=== PATIENT | male | born 1955 | race Two or more races ===

== ENCOUNTER 2024-03-24 00:57 | Inpatient (IN) | payer OTHER ==
[~2024-03-24] VITALS: Ht 198.1 cm; Wt 90.7 kg
[2024-03-24] MEDS ORDERED: LABETALOL HCL IV 100MG VIAL ONE (01:46)
[2024-03-24 01:51] LABS: BASOPHILS # (AUTO) 0.1 K/uL (0.0-0.2); BASOPHILS % (AUTO) 0.5 % (0.0-2.0); EOSINOPHILS # (AUTO) 0.1 K/uL (0.0-0.7); EOSINOPHILS % (AUTO) 0.8 % (0.0-6.0); HEMATOCRIT 44 % (39-51); HEMOGLOBIN 15.2 g/dL (13.5-17.5); LYMPHOCYTES # (AUTO) 1.4 K/uL (0.8-4.8); LYMPHOCYTES % (AUTO) 12.7 % (20.0-44.0); MEAN CORPUSCULAR HEMOGLOBIN 33 PG (26.0-33.0); MEAN CORPUSCULAR HGB CONC 35 g/dl (31.0-36.0); MEAN CORPUSCULAR VOLUME 95 fL (80-96); MONOCYTES % (AUTO) 9.4 % (2.0-12.0); NEUTROPHILS # (AUTO) 8.5 K/uL (1.8-8.9); NEUTROPHILS % (AUTO) 76.6 % (43.0-81.0); PLATELET COUNT (AUTO) 255 K/uL (150-450); RED BLOOD CELL COUNT(AUTO) 4.64 MIL/uL (4.5-6.0); WHITE BLOOD COUNT (AUTO) 11.1 K/uL (4.3-11.0)
[2024-03-24] MEDS: LABETALOL HCL IV 100MG VIAL IV ONE ×2 (01:59→03:08)
[2024-03-24 02:07] LABS: INR 1.05 (0.91-1.10); PARTIAL THROMBOPLASTIN TIME 27.4 SEC (24.3-34.3); PROTHROMBIN TIME 11.1 SECS (9.2-11.1)
[2024-03-24 02:21] LABS: SERUM AMMONIA 8 umol/L (11-32)
[2024-03-24 02:23] LABS: CALCIUM, SERUM 8.9 mg/dL (8.5-10.1); CARBON DIOXIDE 29 mmol/L (21-32); CHLORIDE 99 mmol/L (98-107); CREATININE 1.1 mg/dL (0.6-1.3); GLUCOSE 117 mg/dL (74-106); POTASSIUM 3.4 mmol/L (3.5-5.1); SODIUM SERUM 135 mmol/L (136-145); UREA NITROGEN, BLOOD 15 mg/dL (7-18)
[2024-03-24 02:32] LABS: ALANINE AMINOTRANSFERASE 16 U/L (12-78); ALBUMIN 3.2 g/dL (3.4-5.0); ALKALINE PHOSPHATASE 108 U/L (46-116); ASPARTATE AMINOTRANSFERASE 24 U/L (15-37); BILIRUBIN,DIRECT 0.2 mg/dL (0.0-0.2); SALICYLATE 3.5 mg/dL (2.8-20.0); TOTAL PROTEIN, SERUM 6.7 g/dL (6.4-8.2)
[2024-03-24 02:33] LABS: ACETAMINOPHEN <10 ug/ml (10-30); ALCOHOL, BLOOD < 3 mg/dL (0-10); THYROID STIMULATING HORMONE 2.872 uIU/mL (0.358-3.74)
[2024-03-24 02:44] LABS: APPEARANCE,URINE CLEAR (CLEAR); BILIRUBIN,URINE NEGATIVE (NEGATIVE); BLOOD, URINE 2+ Ery/uL (NEGATIVE); COLOR,URINE YELLOW (YELLOW); KETONES,URINE NEGATIVE (NEGATIVE); LEUKOCYTE ESTERASE ,URINE NEGATIVE (NEGATIVE); NITRITE, URINE NEGATIVE (NEGATIVE); PROTEIN,URINE NEGATIVE (NEGATIVE); UGLUCOSE NEGATIVE (NEGATIVE)
[2024-03-24 02:58] LABS: ADD URINE CULTURE NO; BACTERIA,URINE Few /HPF (None Seen); RBC,URINE 21-50 /HPF (0-2); SQUAMOUS EPITHELIAL CELL,UR None Seen /HPF (None Seen); WBC,URINE 0-2 /HPF (0-3)
[2024-03-24 02:59] LABS: AMPHETAMINE, URINE NEGATIVE (NEGATIVE); BARBITURATE, URINE NEGATIVE (NEGATIVE); BENZODIAZEPINE, URINE NEGATIVE (NEGATIVE); COCCAINE, URINE NEGATIVE (NEGATIVE); OPIATE, URINE NEGATIVE (NEGATIVE); PHENCYCLIDINE SCREEN,URINE NEGATIVE (NEGATIVE)
[2024-03-24 03:00] LABS: CANNABINOID, URINE POSITIVE (NEGATIVE)
[2024-03-24] MEDS ORDERED: MAG HYDROX/AL HYDROX/SIMETH 30 ML UDC PO PRN (06:00)
[2024-03-24] MEDS ORDERED: ACETAMINOPHEN 325 MG TABLET PO PRN (06:00)
[2024-03-24] MEDS ORDERED: ONDANSETRON HCL/PF 4 MG/2 ML VIAL IVP PRN (06:00)
[2024-03-24] MEDS: POTASSIUM CHLORIDE 20 MEQ TAB.PRT.SR PO ONE ×2 (06:22→19:13)
[2024-03-24 06:30] VITALS: BP 171/101
[2024-03-24] MEDS: BLOOD SUGAR DIAGNOSTIC 1 EACH STRIP IN SCH (06:35)
[2024-03-24 07:00] VITALS: BP 143/88; TEMP 97.6; O2SAT 99
[2024-03-24 07:14] LABS: BASOPHILS % (AUTO) 0.3 % (0.0-2.0); EOSINOPHILS # (AUTO) 0.1 K/uL (0.0-0.7); EOSINOPHILS % (AUTO) 1.2 % (0.0-6.0); HEMATOCRIT 41 % (39-51); HEMOGLOBIN 14.4 g/dL (13.5-17.5); LYMPHOCYTES # (AUTO) 1.2 K/uL (0.8-4.8); LYMPHOCYTES % (AUTO) 14.3 % (20.0-44.0); MEAN CORPUSCULAR HEMOGLOBIN 33 PG (26.0-33.0); MEAN CORPUSCULAR HGB CONC 35 g/dl (31.0-36.0); MEAN CORPUSCULAR VOLUME 93 fL (80-96); MONOCYTES # (AUTO) 0.9 K/uL (0.1-1.30); MONOCYTES % (AUTO) 10.4 % (2.0-12.0); NEUTROPHILS # (AUTO) 6.1 K/uL (1.8-8.9); NEUTROPHILS % (AUTO) 73.8 % (43.0-81.0); PLATELET COUNT (AUTO) 236 K/uL (150-450); RED BLOOD CELL COUNT(AUTO) 4.39 MIL/uL (4.5-6.0); RED CELL DISTRIBUTION WIDTH 13.2 % (11.5-15.0); WHITE BLOOD COUNT (AUTO) 8.2 K/uL (4.3-11.0)
[2024-03-24 07:41] LABS: CALCIUM, SERUM 8.8 mg/dL (8.5-10.1); TOTAL PROTEIN, SERUM 6.2 g/dL (6.4-8.2)
[2024-03-24 07:51] LABS: THYROID STIMULATING HORMONE 1.463 uIU/mL (0.358-3.74)
[2024-03-24] MEDS ORDERED: TAMS-12 PO (08:10)
[2024-03-24] MEDS ORDERED: ASPI-1169 PO (08:10)
[2024-03-24] MEDS ORDERED: METO-358 PO (08:10)
[2024-03-24] MEDS ORDERED: VENL150C58 PO (08:10)
[2024-03-24 08:16] LABS: ERYTHROCYTE SEDIMENTATION RATE 3 MM/HR (0-20)
[2024-03-24 08:18] LABS: POTASSIUM 2.9 mmol/L (3.5-5.1)
[2024-03-24] MEDS: NEOMY SULF/BACITRAC ZN/POLY 15 GM TUBE TP SCH (09:00)
[2024-03-24] MEDS: ENOXAPARIN SODIUM 40 MG/0.4 ML DISP.SYRIN SQ SCH (09:44)
[2024-03-24] MEDS: ASPIRIN 81 MG TAB.CHEW PO SCH (09:45)
[2024-03-24] MEDS ORDERED: IOHEXOL-350 100 ML VIAL IV ONE (15:41)
[2024-03-24] MEDS ORDERED: IV NS 0.9% 250 ML IV ONE (15:42)
[2024-03-24] MEDS ORDERED: CT SWABBABLE VALVE TRANS SET 1 EA INFUS.SET MC ONE (15:42)
[2024-03-24 16:00] VITALS: BP 142/90; TEMP 98.2; O2SAT 98
[2024-03-24] MEDS ORDERED: POTASSIUM CHLORIDE 20 MEQ TAB.PRT.SR PO SCH (19:00)
[2024-03-24 20:00] VITALS: BP 174/101; TEMP 97.5; O2SAT 97
[2024-03-24] MEDS: ATORVASTATIN 40 MG TABLET PO SCH (22:29)
[2024-03-25] VITALS (8 sets, daily range): BP systolic 156–183; BP diastolic 90–111; TEMP 97.3–98.3; O2SAT 96–98
[2024-03-25 06:51] LABS: BASOPHILS % (AUTO) 0.5 % (0.0-2.0); EOSINOPHILS # (AUTO) 0.1 K/uL (0.0-0.7); EOSINOPHILS % (AUTO) 1.6 % (0.0-6.0); HEMATOCRIT 41 % (39-51); HEMOGLOBIN 14.4 g/dL (13.5-17.5); LYMPHOCYTES # (AUTO) 1.2 K/uL (0.8-4.8); LYMPHOCYTES % (AUTO) 15.8 % (20.0-44.0); MEAN CORPUSCULAR HEMOGLOBIN 33 PG (26.0-33.0); MEAN CORPUSCULAR HGB CONC 35 g/dl (31.0-36.0); MEAN CORPUSCULAR VOLUME 94 fL (80-96); MONOCYTES # (AUTO) 0.7 K/uL (0.1-1.30); MONOCYTES % (AUTO) 9.5 % (2.0-12.0); NEUTROPHILS # (AUTO) 5.4 K/uL (1.8-8.9); NEUTROPHILS % (AUTO) 72.6 % (43.0-81.0); PLATELET COUNT (AUTO) 201 K/uL (150-450); RED BLOOD CELL COUNT(AUTO) 4.37 MIL/uL (4.5-6.0); RED CELL DISTRIBUTION WIDTH 13.3 % (11.5-15.0); WHITE BLOOD COUNT (AUTO) 7.5 K/uL (4.3-11.0)
[2024-03-25 07:22] LABS: CALCIUM, SERUM 8.7 mg/dL (8.5-10.1); POTASSIUM 3.5 mmol/L (3.5-5.1)
[2024-03-25] MEDS: VENLAFAXINE XR 150 MG CAP.SR.24H PO SCH (08:44)
[2024-03-25] MEDS: METOPROLOL SUCCINATE 50 MG TAB.SR.24H PO SCH (08:45)
[2024-03-25] MEDS: MUPIROCIN OINT 2% 22 GM TUBE TP SCH (08:46)
[2024-03-25] MEDS: AMLODIPINE BESYLATE 5 MG TABLET PO SCH (12:16)
[2024-03-25] MEDS: hydrALAZINE HCL 25 MG TABLET PO PRN (14:31)
[2024-03-25] MEDS: CYANOCOBALAMIN 1,000 MCG/ML VIAL IM SCH (15:38)
[2024-03-25] MEDS: AMLODIPINE BESYLATE 5 MG TABLET PO ONE (16:35)
[2024-03-26 08:00] VITALS: BP 175/112; TEMP 97.7; O2SAT 99
[2024-03-26] MEDS: TAMSULOSIN 0.4 MG CAP.SR.24H PO SCH (08:28)
[2024-03-26] MEDS: AMLODIPINE BESYLATE 10 MG TABLET PO SCH (08:28)
[2024-03-26] MEDS ORDERED: ASPIRIN 81 MG TAB.CHEW PO SCH (09:00)
[2024-03-26] MEDS ORDERED: VENLAFAXINE XR 150 MG CAP.SR.24H PO SCH (09:00)
[2024-03-26] MEDS: LOSARTAN POTASSIUM 25 MG TABLET PO SCH (09:59)
[2024-03-26 11:23] VITALS: BP 167/96
[2024-03-26] MEDS ORDERED: ATOR40TA PO (13:03)
[2024-03-26] MEDS ORDERED: CYAN100096 PO (13:03)
[2024-03-26] MEDS ORDERED: AMLO-213 PO (13:03)
[2024-03-26] MEDS ORDERED: LOSA25TA27 PO (13:03)
[2024-03-29 13:11] LABS: METHYLMALONIC ACID 316 nmol/L (0-378)
== END 2024-03-26 13:28 | disposition home or self-care (01) | DRG 304 ==
LOC: ER 00:59 → TELE 03:11 → MED 03-25 12:25
PROVIDERS: ADMIT Student in an Organized Health Care Education/Training Program; ATTEND Student in an Organized Health Care Education/Training Program
DX: I16.0 Hypertensive urgency (principal); G92.9 Unspecified toxic encephalopathy; E44.0 Moderate protein-calorie malnutrition; E87.1 Hypo-osmolality and hyponatremia; F33.2 Major depressive disorder, recurrent severe without psychotic features; I48.91 Unspecified atrial fibrillation; I10 Essential (primary) hypertension; Z86.73 Personal history of transient ischemic attack (TIA), and cerebral infarction without residual deficits; E87.6 Hypokalemia; Z79.82 Long term (current) use of aspirin; Z95.0 Presence of cardiac pacemaker; V89.2XXA Person injured in unspecified motor-vehicle accident, traffic, initial encounter; Y04.0XXA Assault by unarmed brawl or fight, initial encounter; Y92.410 Unspecified street and highway as the place of occurrence of the external cause; S81.802A Unspecified open wound, left lower leg, initial encounter; S81.801A Unspecified open wound, right lower leg, initial encounter; X58.XXXA Exposure to other specified factors, initial encounter; R60.9 Edema, unspecified; Z68.23 Body mass index [BMI] 23.0-23.9, adult
CPT/HCPCS: 36415; 70450-TC; 70496-TC; 70498-TC; 71045-TC; 72125-TC; 80048-TC; 80053-TC; 80061-TC; 80076-TC; 81001; 82140-TC; 82607-TC; 82962-TC; 83921; 84425; 84443-TC; 84484-TC; 85025-TC; 85378-TC; 85652-TC; 85730-TC; 92507-TC; 92521; 92526; 92611-TC; 93307-TC; 97110-TC; 97116-TC; 97530-TC; 97535-TC; G0378; G0480; J1650; J3420; J3490; J7050; Q9967